=== PATIENT | female | born 1945 | race Caucasian/White ===

== ENCOUNTER 2019-01-25 12:01 | Emergency (ER) | payer OTHER ==
[~2019-01-25] VITALS: Ht 160 cm; Wt 51.1 kg
[~2019-01-25 12:01] MED LIST: ACET-141 PO; ACET325T45 PO; ASPI-817 PO; ASPI81TA48 PO; ATOR20TA38 PO; ATOR40TA68 PO; CALC-707 PO; CHOL400T10 PO; CLC1500T PO; HYDR25TA6 PO; LORA10TA3 PO; LOSA50TA14 PO; MECL-113 PO; METF500T24 PO; ONDA4TAB35 PO; PROP40TA4 PO; SUCR1TAB56 PO
[2019-01-25 12:12] VITALS: Ht 160 cm; Wt 51.1 kg
[2019-01-25] MEDS ORDERED: SOD CHLORIDE 0.9% 500 ML IV STA (12:25)
[2019-01-25] MEDS ORDERED: MECLIZINE 12.5 MG TAB PO ONE (15:30)
[2019-01-25 16:55] VITALS: BP 113/74; PULSE 74; RESP 18
== END 2019-01-25 17:41 | disposition left against medical advice (07) ==
LOC: E/R 12:01
DX: R53.1 Weakness (principal); I10 Essential (primary) hypertension; E11.9 Type 2 diabetes mellitus without complications; Z86.73 Personal history of transient ischemic attack (TIA), and cerebral infarction without residual deficits; Z79.82 Long term (current) use of aspirin; Z79.84 Long term (current) use of oral hypoglycemic drugs
CPT/HCPCS: 36415; 71045; 80048; 81003; 82550; 82553; 82962; 83880; 84484; 85025; 93005; 99285; J7040